=== PATIENT | female | born 1960 | race Caucasian/White ===

== ENCOUNTER 2016-08-26 17:35 | Emergency (ER) | payer OTHER ==
[2016-08-26 18:01] VITALS: TEMP 97.7; BMI 31.6
[2016-08-26 18:48] VITALS: BP 125/73; PULSE 78
[2016-08-26 19:07] LABS: BASOPHIL 1.1 % (0-2.0); EOSINOPHIL 1.5 % (0-4.5); MCH 35.6 pg (25.7-33.7); MEAN PLT VOLUME 9.2 fl (7.5-11.1); NEUTROPHILS 60.2 % (42.8-82.8); PLATELET COUNT 291 K/MM3 (134-434); RDW 14.4 % (11.6-15.6); WHITE BLOOD COUNT 3.9 K/mm3 (4.0-10.0)
[2016-08-26 19:12] LABS: URINE APPEARANCE CLEAR; URINE BILIRUBIN NEGATIVE (NEGATIVE); URINE BLOOD NEGATIVE (NEGATIVE); URINE COLOR LTYELLOW; URINE GLUCOSE (UA) NEGATIVE (NEGATIVE); URINE KETONE NEGATIVE (NEGATIVE); URINE LEUK ESTERASE NEGATIVE (NEGATIVE); URINE NITRITE NEGATIVE (NEGATIVE); URINE PROTEIN NEGATIVE (NEGATIVE); URINE UROBILINOGEN NEGATIVE E.U./dl (0.2-1.0)
[2016-08-26 19:17] LABS: INR 1.1 (0.82-1.09); PROTHROMBIN TIME (PATIENT) 12.1 SEC (9.98-11.88)
--- NOTE | 2016-08-26 19:42 | PDOC ---
History of Present Illness - General History Source: [facility] Records Exam Limitations: Clinical Condition, Dementia, Other (nonverbal) - History of Present Illness Initial Comments: 08/26/16 19:47 The patient is a 56 year old female with significant past medical history of hypertension, hypothyroidism, down's syndrome, dementia, nonverbal at baseline, sleep apnea, arthritis, and obesity who presents to the ED BIBA from [facility] for AMS and possible first time seizure. Allergies: NKDA Social History: No alcohol, tobacco, or drug use reported. Past Surgical History: None reported PCP: Dr. Altaf Loaiza <Alena Khalil - Last Filed: 08/26/16 21:27> - General History Source: [facility] Records <Daniel Damon - Last Filed: 08/26/16 21:35> - General Chief Complaint: Altered Mental Status Stated Complaint: AMS Time Seen by Provider: 08/26/16 19:42 Past History <Alena Khalil - Last Filed: 08/26/16 21:27> - Past Medical History Dementia: Yes Psychiatric Problems: Yes (DOWN SYNDROME, ANXIETY) - Psycho/Social/Smoking Cessation Hx Anxiety: No Suicidal Ideation: No Smoking History: Never smoked Have you smoked in the past 12 months: No Hx Alcohol Use: No Substance Use Type: None <Daniel Damon - Last Filed: 08/26/16 21:35> - Past Medical History Allergies/Adverse Reactions: Allergies Allergy/AdvReac Type Severity Reaction Status Date / Time No Known Allergies Allergy Verified 08/26/16 17:52 Home Medications: Ambulatory Orders Levothyroxine [Synthroid -] 25 mcg PO DAILY 11/21/13 Memantine HCl [Namenda Xr] 10 mg PO BID 11/21/13 Acetaminophen [Tylenol .Regular Strength -] 650 mg PO Q6H PRN #60 tablet Pantoprazole Sodium [Protonix -] 40 mg PO DAILY #60 tablet.ec 11/25/13 Multivitamin with Minerals [Icaps Plus] 1 each PO DAILY 08/26/16 Review of Systems - Review of Systems Able to Perform ROS?: No Comments:: 08/26/16 19:47 Unable to obtain ROS secondary to patients clinical condition <Alena Khalil - Last Filed: 08/26/16 21:27> *Physical Exam - Vital Signs Last Vital Signs Temp Pulse Resp BP Pulse Ox 97.7 F 78 16 125/73 100 08/26/16 17:53 08/26/16 18:45 08/26/16 18:45 08/26/16 18:45 08/26/16 18:45 - Physical Exam Comments: 08/26/16 19:48 GENERAL: Well developed, well nourished. Awake. No acute distress. HEENT: Normocephalic, atraumatic. PERRLA, EOMI. No conjunctival pallor. Sclera are non- icteric. Moist mucous membranes. Oropharynx is clear. NECK: Supple. Full ROM. No JVD. Carotid pulses 2+ and symmetric, without bruits. No thyromegaly. No lymphadenopathy. CARDIOVASCULAR: Regular rate and rhythm. No murmurs, rubs, or gallops. Distal pulses are 2+ and symmetric. PULMONARY: No evidence of respiratory distress. Lungs clear to auscultation bilaterally. No wheezing, rales or rhonchi. ABDOMINAL: Soft. Non-distended. No rebound or guarding. No organomegaly. Normoactive bowel sounds. MUSCULOSKELETAL Normal range of motion at all joints. No bony deformities. EXTREMITIES: No cyanosis. No clubbing. No edema. SKIN: Warm and dry. Normal capillary refill. No rashes. No jaundice. NEUROLOGICAL: Pt is nonverbal, moving all extremities equally, sensory grossly intact, no gross neurological deficits. <Alena Khalil - Last Filed: 08/26/16 21:27> - Vital Signs Last Vital Signs Temp Pulse Resp BP Pulse Ox 97.7 F 78 16 125/73 100 08/26/16 17:53 08/26/16 18:45 08/26/16 18:45 08/26/16 18:45 08/26/16 18:45 <Daniel Damon - Last Filed: 08/26/16 21:35> Heart Score/ECG Review - ECG Impressions Comment:: 08/26/16 19:48 NSR @69bpm <Alena Khalil - Last Filed: 08/26/16 21:27> ED Treatment Course - LABORATORY CBC & Chemistry Diagram: 08/26/16 18:30 08/26/16 20:05 - ADDITIONAL ORDERS Additional order review: Laboratory Results 08/26/16 08/26/16 08/26/16 18:49 18:30 18:30 INR Sodium Cancelled Potassium Cancelled Chloride Cancelled Carbon Dioxide Cancelled Anion Gap Cancelled BUN Cancelled Creatinine Cancelled Creat Clearance w eGFR Cancelled Random Glucose Cancelled Lactic Acid 0.920 Calcium Cancelled Total Bilirubin Cancelled AST Cancelled ALT Cancelled Alkaline Phosphatase Cancelled Total Protein Cancelled Albumin Cancelled Urine Color Ltyellow Urine Appearance Clear Urine pH 6.0 Urine Protein Negative Urine Glucose (UA) Negative Urine Ketones Negative Urine Blood Negative Urine Nitrite Negative Urine Bilirubin Negative Urine Urobilinogen Negative Ur Leukocyte Esterase Negative 08/26/16 18:30 INR 1.10 Sodium Potassium Chloride Carbon Dioxide Anion Gap BUN Creatinine Creat Clearance w eGFR Random Glucose Lactic Acid Calcium Total Bilirubin AST ALT Alkaline Phosphatase Total Protein Albumin Urine Color Urine Appearance Urine pH Urine Protein Urine Glucose (UA) Urine Ketones Urine Blood Urine Nitrite Urine Bilirubin Urine Urobilinogen Ur Leukocyte Esterase 08/26/16 18:30 RBC 3.57 L MCV 108.0 H MCHC 33.0 RDW 14.4 MPV 9.2 Neutrophils % 60.2 Lymphocytes % 28.2 Monocytes % 9.0 Eosinophils % 1.5 Basophils % 1.1 <Alena Khalil - Last Filed: 08/26/16 21:27> - LABORATORY CBC & Chemistry Diagram: 08/26/16 18:30 08/26/16 20:05 - ADDITIONAL ORDERS Additional order review: Laboratory Results 08/26/16 08/26/16 08/26/16 18:49 18:30 18:30 INR Sodium Cancelled Potassium Cancelled Chloride Cancelled Carbon Dioxide Cancelled Anion Gap Cancelled BUN Cancelled Creatinine Cancelled Creat Clearance w eGFR Cancelled Random Glucose Cancelled Lactic Acid 0.920 Calcium Cancelled Total Bilirubin Cancelled AST Cancelled ALT Cancelled Alkaline Phosphatase Cancelled Total Protein Cancelled Albumin Cancelled Urine Color Ltyellow Urine Appearance Clear Urine pH 6.0 Urine Protein Negative Urine Glucose (UA) Negative Urine Ketones Negative Urine Blood Negative Urine Nitrite Negative Urine Bilirubin Negative Urine Urobilinogen Negative Ur Leukocyte Esterase Negative 08/26/16 18:30 INR 1.10 Sodium Potassium Chloride Carbon Dioxide Anion Gap BUN Creatinine Creat Clearance w eGFR Random Glucose Lactic Acid Calcium Total Bilirubin AST ALT Alkaline Phosphatase Total Protein Albumin Urine Color Urine Appearance Urine pH Urine Protein Urine Glucose (UA) Urine Ketones Urine Blood Urine Nitrite Urine Bilirubin Urine Urobilinogen Ur Leukocyte Esterase 08/26/16 18:30 RBC 3.57 L MCV 108.0 H MCHC 33.0 RDW 14.4 MPV 9.2 Neutrophils % 60.2 Lymphocytes % 28.2 Monocytes % 9.0 Eosinophils % 1.5 Basophils % 1.1 <Daniel Damon - Last Filed: 08/26/16 21:35> Medical Decision Making - Medical Decision Making 08/26/16 21:[address] Anahi Fountain (via answering service) at 21:19 Awaiting call back 08/26/16 21:26 Patient's case discussed with Dr. Fountain at 21:26 <Alena Khalil - Last Filed: 08/26/16 21:27> - Medical Decision Making 08/26/16 21:32 Dr. Damon: The scribe's documentation has been prepared under my direction and personally reviewed by me in its entirery. I confirm that the note above accurately reflects all work, treatment, procedures, and medical decision making performed by me. All labs, Ct scan of brain and chest xray are negative. Pt will return to [place] as discussed with Dr. Abelardo Fountain. He suggests outpt neurology follow up <Daniel Damon - Last Filed: 08/26/16 21:35> *DC/Admit/Observation/Transfer - Attestations Scribe Attestion: 08/26/16 19:48 Documentation prepared by Alena Khalil, acting as medical laboratory technician for Daniel Damon MD/DO. <Alena Khalil - Last Filed: 08/26/16 21:27> - Discharge Dispostion Admit: No <Daniel Damon - Last Filed: 08/26/16 21:35> Diagnosis at time of Disposition: Altered awareness, transient, Hypothyroidism, Down syndrome, Hypertension - Discharge Dispostion Disposition: HOME Condition at time of disposition: Stable - Referrals Referrals: Altaf Loaiza [Primary Care Provider] - - Patient Instructions Printed Discharge Instructions: DI for Altered Mental Status Additional Instructions: Spoke to Dr. Christi Fountain. suggests outpt Neurology follow up. Continue all medications . All studies including Head ct scan, chest xray, and labs work are negative.
[2016-08-26 20:51] LABS: ANION GAP 7 (8-16); BILIRUBIN,TOTAL 0.4 mg/dL (0.2-1.0); CALCIUM 8.9 mg/dL (8.5-10.1); CO2 30 mmol/L (21-32); COCKROFT - GAULT 92.6925; CREATININE 0.9 mg/dL (0.55-1.02); GLUCOSE,RANDOM 126 mg/dL (74-106); SGOT/AST 26 U/L (15-37); SGPT/ALT 26 U/L (12-78); TOT PROT 7.3 g/dl (6.4-8.2)
[2016-08-26 20:53] LABS: ALK PHOS 68 U/L (45-117)
--- NOTE | 2016-08-27 12:21 | EKG ---
Test Reason : Blood Pressure : / mmHG Vent. Rate : 069 BPM Atrial Rate : 069 BPM P-R Int : 150 ms QRS Dur : 098 ms QT Int : 418 ms P-R-T Axes : 056 082 036 degrees QTc Int : 447 ms NORMAL SINUS RHYTHM NORMAL ECG WHEN COMPARED WITH ECG OF 21-NOV-2013 19:52, ST NOW DEPRESSED IN ANTERIOR LEADS Confirmed by VAISHNAVI SHEPHERD MD ([id number]) on 08/27/2016 12:21:17 PM Referred By: Confirmed By:VAISHNAVI SHEPHERD MD
== END 2016-08-26 23:45 | disposition home or self-care (01) ==
LOC: JER 17:35
DX: R40.4 Transient alteration of awareness (principal); Q90.9 Down syndrome, unspecified; I10 Essential (primary) hypertension; E03.9 Hypothyroidism, unspecified; F03.90 Unspecified dementia, unspecified severity, without behavioral disturbance, psychotic disturbance, mood disturbance, and anxiety; E66.9 Obesity, unspecified; Z68.31 Body mass index [BMI] 31.0-31.9, adult; F41.9 Anxiety disorder, unspecified
CPT/HCPCS: 36415; 70450-TC; 71010-TC; 80053; 81003; 83605; 85025; 85610; 87040; 87086; 93005; 93010; 99285-25

== ENCOUNTER 2021-02-07 07:52 | Inpatient (IN) | payer OTHER ==
[2021-02-07] MEDS ORDERED: ALBUTEROL SO4 2.5/IPRATROPIUM 0.5 INH SOL 3 ML VIAL.NEB. NEB SCH (08:30)
[2021-02-07 09:15] LABS: BASO % 0.9 % (0-2.0); EOS % 0.9 % (0-4.5); HEMATOCRIT 36.9 % (32.4-45.2); HEMOGLOBIN 12.7 GM/dL (10.7-15.3); LYMPH % 10.8 % (8-40); MCH 37.9 pg (25.7-33.7); MCHC 34.5 g/dl (32.0-36.0); MEAN CELL VOLUME 109.9 fl (80-96); MEAN PLT VOLUME 7.5 fl (7.5-11.1); MONO % 5.2 % (3.8-10.2); NEUT % 82.2 % (42.8-82.8); PLATELET COUNT 215 10^3/uL (134-434); RBC 3.35 M/mm3 (3.60-5.2); RDW 13.5 % (11.6-15.6); WHITE BLOOD COUNT 9.4 K/mm3 (4.0-10.0)
[2021-02-07 09:42] LABS: CHLORIDE 106 mmol/L (98-107); SODIUM 142 mmol/L (136-145)
[2021-02-07 09:44] LABS: CALCIUM 9.5 mg/dL (8.5-10.1)
[2021-02-07 09:45] LABS: ALBUMIN 2.9 g/dl (3.4-5.0); ANION GAP 4 MMOL/L (8-16); BLOOD UREA NITROGEN 24.4 mg/dL (7-18); CO2 32 mmol/L (21-32); GLUCOSE,RANDOM 105 mg/dL (74-106)
[2021-02-07 09:48] LABS: CREATININE 1.1 mg/dL (0.55-1.3); SGOT/AST 16 U/L (15-37); SGPT/ALT 15 U/L (13-61)
[2021-02-07] MEDS ORDERED: SODIUM CHLORIDE 0.9% 500 ML INFUS.BAG IV ONE (09:48)
[2021-02-07 09:49] LABS: BILIRUBIN,TOTAL 0.4 mg/dL (0.2-1)
[2021-02-07 09:50] LABS: ALK PHOS 55 U/L (45-117); TOT PROT 6.9 g/dl (6.4-8.2)
[2021-02-07 10:22] LABS: VENOUS BASE EXCESS 3.6 mmol/L (-2-2); VENOUS O2 SATURATION 34.7 % (70-80); VENOUS PCO2 55.9 mmHg (38-52); VENOUS PH 7.355 (7.310-7.410)
[2021-02-07 10:48] LABS: ANISOCYTOSIS 0; MACROCYTOSIS 1+; PLATELET ESTIMATE NORMAL
[2021-02-07] MEDS ORDERED: ENOXAPARIN NA (PORCINE) 80 MG/0.8 ML DISP.SYRIN SQ ONE (13:10)
[2021-02-07] MEDS ORDERED: ACETAMINOPHEN 325 MG TABLET (FP) PO PRN (14:00)
[2021-02-07 14:21] LABS: N-TERMINAL BNP 88.7 pg/ml (5-125)
[2021-02-07] MEDS: ENOXAPARIN NA (PORCINE) 80 MG/0.8 ML DISP.SYRIN SQ SCH (19:34)
[2021-02-08] MEDS: MEMANTINE HCL 10 MG TABLET (FP) PO SCH ×3 (00:04→21:02)
[2021-02-08] MEDS: ENOXAPARIN NA (PORCINE) 80 MG/0.8 ML DISP.SYRIN SQ SCH ×2 (02:36→14:37)
[2021-02-08] MEDS: LEVOTHYROXINE NA 25 MCG TABLET (FP) PO SCH (07:13)
[2021-02-08] MEDS ORDERED: PT OWN MED DRAWER 7, Y5N ONE (09:51)
[2021-02-08] MEDS: MULTIVITAMINS THER W-MINERALS COMBO TABLET (FP) PO SCH (10:04)
[2021-02-08] MEDS: PANTOPRAZOLE 40 MG TABLET PO SCH (10:04)
[2021-02-09] MEDS: ENOXAPARIN NA (PORCINE) 80 MG/0.8 ML DISP.SYRIN SQ SCH ×2 (02:21→13:40)
[2021-02-09] MEDS: LEVOTHYROXINE NA 25 MCG TABLET (FP) PO SCH (06:10)
[2021-02-09] MEDS: MEMANTINE HCL 10 MG TABLET (FP) PO SCH ×2 (09:21→21:52)
[2021-02-09] MEDS: PANTOPRAZOLE 40 MG TABLET PO SCH (09:21)
[2021-02-09] MEDS: MULTIVITAMINS THER W-MINERALS COMBO TABLET (FP) PO SCH (09:21)
[2021-02-09 12:20] VITALS: BMI 34.2
[2021-02-10] MEDS: ENOXAPARIN NA (PORCINE) 80 MG/0.8 ML DISP.SYRIN SQ SCH ×2 (03:32→14:48)
[2021-02-10] MEDS: LEVOTHYROXINE NA 25 MCG TABLET (FP) PO SCH (06:48)
[2021-02-10] MEDS ORDERED: PT OWN MED DRAWER 7, Y5N ONE ×2 (07:29→16:20)
[2021-02-10] MEDS: AMINO ACIDS/PROTEIN HYDROLYS 30 ML LIQUID.PKT PO SCH (09:30)
[2021-02-10] MEDS: PANTOPRAZOLE 40 MG TABLET PO SCH (09:30)
[2021-02-10] MEDS: MULTIVITAMINS THER W-MINERALS COMBO TABLET (FP) PO SCH (09:30)
[2021-02-10] MEDS: MEMANTINE HCL 10 MG TABLET (FP) PO SCH ×2 (09:30→21:56)
[2021-02-10] MEDS: ASCORBIC ACID 250 MG TABLET (FP) PO SCH (09:34)
[2021-02-10] MEDS: ZINC SULFATE 220 MG CAPSULE (FP) PO SCH (09:34)
[2021-02-10] MEDS: CHOLECALCIFEROL (VIT D3) 1,000 UNIT (25 MCG) TABLET PO SCH ×2 (11:48→21:56)
[2021-02-10 13:56] LABS: BASO % 1.1 % (0-2.0); EOS % 3.6 % (0-4.5); HEMATOCRIT 35.6 % (32.4-45.2); LYMPH % 22.5 % (8-40); MCH 37.1 pg (25.7-33.7); MCHC 33.8 g/dl (32.0-36.0); MEAN CELL VOLUME 109.9 fl (80-96); MEAN PLT VOLUME 8.3 fl (7.5-11.1); MONO % 5.7 % (3.8-10.2); NEUT % 67.1 % (42.8-82.8); PLATELET COUNT 221 10^3/uL (134-434); RBC 3.24 M/mm3 (3.60-5.2); RDW 13.3 % (11.6-15.6); WHITE BLOOD COUNT 5.2 K/mm3 (4.0-10.0)
[2021-02-10 14:16] LABS: BLOOD UREA NITROGEN 14.3 mg/dL (7-18)
[2021-02-10 14:19] LABS: CREATININE 0.8 mg/dL (0.55-1.3)
[2021-02-10 14:20] LABS: BILIRUBIN,TOTAL 0.5 mg/dL (0.2-1); TOT PROT 6.4 g/dl (6.4-8.2)
[2021-02-10 14:28] LABS: ALBUMIN 2.5 g/dl (3.4-5.0)
[2021-02-10 14:43] LABS: ANISOCYTOSIS 2+; MACROCYTOSIS 0; PLATELET ESTIMATE NORMAL
[2021-02-11] MEDS: ENOXAPARIN NA (PORCINE) 80 MG/0.8 ML DISP.SYRIN SQ SCH ×2 (02:59→13:59)
[2021-02-11] MEDS: LEVOTHYROXINE NA 25 MCG TABLET (FP) PO SCH (06:47)
[2021-02-11] MEDS: CHOLECALCIFEROL (VIT D3) 1,000 UNIT (25 MCG) TABLET PO SCH ×2 (10:25→21:13)
[2021-02-11] MEDS: ASCORBIC ACID 250 MG TABLET (FP) PO SCH (10:25)
[2021-02-11] MEDS: ZINC SULFATE 220 MG CAPSULE (FP) PO SCH (10:25)
[2021-02-11] MEDS: MULTIVITAMINS THER W-MINERALS COMBO TABLET (FP) PO SCH (10:25)
[2021-02-11] MEDS: PANTOPRAZOLE 40 MG TABLET PO SCH (10:25)
[2021-02-11] MEDS: MEMANTINE HCL 10 MG TABLET (FP) PO SCH ×2 (10:25→21:13)
[2021-02-11] MEDS: AMINO ACIDS/PROTEIN HYDROLYS 30 ML LIQUID.PKT PO SCH (10:25)
[2021-02-12] MEDS: ENOXAPARIN NA (PORCINE) 80 MG/0.8 ML DISP.SYRIN SQ SCH (02:17)
[2021-02-12] MEDS: LEVOTHYROXINE NA 25 MCG TABLET (FP) PO SCH (06:03)
[2021-02-12] MEDS: PANTOPRAZOLE 40 MG TABLET PO SCH (09:51)
[2021-02-12] MEDS: CHOLECALCIFEROL (VIT D3) 1,000 UNIT (25 MCG) TABLET PO SCH (09:51)
[2021-02-12] MEDS: MEMANTINE HCL 10 MG TABLET (FP) PO SCH (09:51)
[2021-02-12] MEDS: AMINO ACIDS/PROTEIN HYDROLYS 30 ML LIQUID.PKT PO SCH (09:52)
[2021-02-12] MEDS: MULTIVITAMINS THER W-MINERALS COMBO TABLET (FP) PO SCH (09:52)
[2021-02-12] MEDS: ZINC SULFATE 220 MG CAPSULE (FP) PO SCH (09:52)
[2021-02-12] MEDS: ASCORBIC ACID 250 MG TABLET (FP) PO SCH (09:52)
[2021-02-12] MEDS ORDERED: DEXTROSE 5%-WATER - 50 ML IVPB ONE ×2 (11:42→17:10)
[2021-02-12] MEDS ORDERED: PIPERACILLIN/TAZOBACTAM 3.375 GM VIAL IVPB ONE ×2 (11:42→17:10)
[2021-02-12] MEDS: PIPERACILLIN/TAZOB 3.375 GM 3.375 GM in DEXTROSE 5%-WATER - 50 ML IVPB SCH ×2 (11:44→19:15)
[2021-02-12] MEDS: APIXABAN 5 MG TABLET PO SCH ×2 (11:49→21:18)
[2021-02-12 11:52] LABS: BASO % 0.4 % (0-2.0); EOS % 0.7 % (0-4.5); HEMATOCRIT 36.9 % (32.4-45.2); HEMOGLOBIN 12.4 GM/dL (10.7-15.3); LYMPH % 14.6 % (8-40); MCHC 33.5 g/dl (32.0-36.0); MEAN CELL VOLUME 110.3 fl (80-96); MONO % 6.1 % (3.8-10.2); NEUT % 78.2 % (42.8-82.8); PLATELET COUNT 228 10^3/uL (134-434); RBC 3.35 M/mm3 (3.60-5.2); WHITE BLOOD COUNT 8.3 K/mm3 (4.0-10.0)
[2021-02-12 12:07] LABS: ALBUMIN 2.8 g/dl (3.4-5.0); BLOOD UREA NITROGEN 20.8 mg/dL (7-18); CALCIUM 8.7 mg/dL (8.5-10.1)
[2021-02-12 12:11] LABS: CREATININE 0.8 mg/dL (0.55-1.3)
[2021-02-12 12:12] LABS: BILIRUBIN,TOTAL 0.8 mg/dL (0.2-1); TOT PROT 6.8 g/dl (6.4-8.2)
[2021-02-12] MEDS ORDERED: PT OWN MED DRAWER 7, Y5N ONE (12:51)
[2021-02-13] MEDS ORDERED: PIPERACILLIN/TAZOBACTAM 3.375 GM VIAL IVPB ONE ×3 (01:17→17:14)
[2021-02-13] MEDS ORDERED: DEXTROSE 5%-WATER - 50 ML IVPB ONE ×3 (01:18→17:15)
[2021-02-13] MEDS: PIPERACILLIN/TAZOB 3.375 GM 3.375 GM in DEXTROSE 5%-WATER - 50 ML IVPB SCH ×3 (01:26→17:32)
[2021-02-13 02:59] LABS: EPI CELLS 24 /uL (0-25.1); HYALINE CASTS 0 /uL (0-3.1); PH,URINE 5.5 (5.0-8.0); URINE APPEARANCE TURBID; URINE BACTERIA 24 /uL (0-1359); URINE BILIRUBIN NEGATIVE (NEGATIVE); URINE COLOR DK YELLOW; URINE GLUCOSE (UA) NEGATIVE (NEGATIVE); URINE KETONE 1+ (NEGATIVE); URINE LEUK ESTERASE NEGATIVE (NEGATIVE); URINE NITRITE NEGATIVE (NEGATIVE); URINE PROTEIN 1+ (NEGATIVE); URINE RBC 23 /uL (0-23.9); URINE UROBILINOGEN 0.2 mg/dL (0.2-1.0); URINE WBC 15 /uL (0-25.8)
[2021-02-13] MEDS: PANTOPRAZOLE SODIUM 40 MG VIAL IVPUSH SCH (09:51)
[2021-02-13] MEDS: APIXABAN 5 MG TABLET PO SCH ×2 (11:06→21:08)
[2021-02-13 12:38] LABS: ARTERIAL BLD GAS O2 SATURATION 98.5 % (95-98); ARTERIAL BLOOD GAS BASE EXCESS 6.7 mmol/L (-2-2); ARTERIAL BLOOD GAS PO2 136.7 mmHg (80-100); ARTERIAL BLOOD GAS pH 7.354 (7.350-7.450)
[2021-02-13 12:39] LABS: ALLENS TEST POSITIVE
[2021-02-13] MEDS: ENOXAPARIN NA (PORCINE) 80 MG/0.8 ML DISP.SYRIN SQ SCH (17:33)
[2021-02-13] MEDS: AMINO ACIDS 4.25%/D5W 1,000 ML IV SCH (18:05)
[2021-02-13] MEDS: MEMANTINE HCL 10 MG TABLET (FP) PO SCH (21:08)
[2021-02-14] MEDS ORDERED: PIPERACILLIN/TAZOBACTAM 3.375 GM VIAL IVPB ONE ×3 (01:44→17:41)
[2021-02-14] MEDS ORDERED: DEXTROSE 5%-WATER - 50 ML IVPB ONE ×3 (01:44→17:41)
[2021-02-14] MEDS: PIPERACILLIN/TAZOB 3.375 GM 3.375 GM in DEXTROSE 5%-WATER - 50 ML IVPB SCH ×3 (02:36→17:59)
[2021-02-14] MEDS: AMINO ACIDS 4.25%/D5W 1,000 ML IV SCH ×2 (03:25→15:01)
[2021-02-14] MEDS: ENOXAPARIN NA (PORCINE) 80 MG/0.8 ML DISP.SYRIN SQ SCH ×2 (03:25→15:46)
[2021-02-14] MEDS: LEVOTHYROXINE SODIUM 100 MCG VIAL IVPUSH SCH (09:40)
[2021-02-14] MEDS: PANTOPRAZOLE SODIUM 40 MG VIAL IVPUSH SCH (09:41)
[2021-02-14] MEDS: MEMANTINE HCL 10 MG TABLET (FP) PO SCH (09:42)
[2021-02-14] MEDS: APIXABAN 5 MG TABLET PO SCH (09:42)
[2021-02-14] MEDS ORDERED: ALBUTEROL SO4 2.5/IPRATROPIUM 0.5 INH SOL 3 ML VIAL.NEB. NEB PRN (15:04)
[2021-02-14] MEDS ORDERED: ACETAMINOPHEN 1000 MG/100 ML VIAL IVPB PRN (15:05)
[2021-02-15] MEDS ORDERED: PIPERACILLIN/TAZOBACTAM 3.375 GM VIAL IVPB ONE ×3 (01:59→17:20)
[2021-02-15] MEDS ORDERED: DEXTROSE 5%-WATER - 50 ML IVPB ONE ×3 (01:59→17:20)
[2021-02-15] MEDS: ENOXAPARIN NA (PORCINE) 80 MG/0.8 ML DISP.SYRIN SQ SCH ×2 (03:02→16:22)
[2021-02-15] MEDS: PIPERACILLIN/TAZOB 3.375 GM 3.375 GM in DEXTROSE 5%-WATER - 50 ML IVPB SCH ×3 (03:02→17:26)
[2021-02-15] MEDS: AMINO ACIDS 4.25%/D5W 2,000 ML IV SCH ×2 (03:03→21:53)
[2021-02-15 07:25] LABS: BASO % 0.8 % (0-2.0); EOS % 4.3 % (0-4.5); HEMATOCRIT 32.8 % (32.4-45.2); HEMOGLOBIN 11.4 GM/dL (10.7-15.3); LYMPH % 18.7 % (8-40); MCH 37.6 pg (25.7-33.7); MCHC 34.8 g/dl (32.0-36.0); MEAN CELL VOLUME 107.9 fl (80-96); MEAN PLT VOLUME 7.9 fl (7.5-11.1); NEUT % 69.2 % (42.8-82.8); PLATELET COUNT 182 10^3/uL (134-434); RBC 3.04 M/mm3 (3.60-5.2); RDW 12.9 % (11.6-15.6); WHITE BLOOD COUNT 5.5 K/mm3 (4.0-10.0)
[2021-02-15] MEDS ORDERED: PT OWN MED DRAWER 7, Y5N ONE (08:16)
[2021-02-15 08:31] LABS: CALCIUM 7.8 mg/dL (8.5-10.1)
[2021-02-15 08:33] LABS: ALBUMIN 2.2 g/dl (3.4-5.0)
[2021-02-15 08:35] LABS: CREATININE 0.6 mg/dL (0.55-1.3)
[2021-02-15 08:36] LABS: BILIRUBIN,TOTAL 0.4 mg/dL (0.2-1)
[2021-02-15 08:38] LABS: TOT PROT 5.7 g/dl (6.4-8.2)
[2021-02-15 08:51] LABS: ANISOCYTOSIS 1+; MACROCYTOSIS 1+; PLATELET ESTIMATE NORMAL
[2021-02-15] MEDS: LEVOTHYROXINE SODIUM 100 MCG VIAL IVPUSH SCH (09:18)
[2021-02-15] MEDS: PANTOPRAZOLE SODIUM 40 MG VIAL IVPUSH SCH (09:19)
[2021-02-15] MEDS: MULTIVIT INJ. ADULT COMBO WITH VIT K 1 COMBO 10 ML VIAL IV SCH (12:15)
[2021-02-16] MEDS ORDERED: PIPERACILLIN/TAZOBACTAM 3.375 GM VIAL IVPB ONE ×3 (00:48→16:32)
[2021-02-16] MEDS ORDERED: DEXTROSE 5%-WATER - 50 ML IVPB ONE ×3 (00:48→16:32)
[2021-02-16] MEDS: PIPERACILLIN/TAZOB 3.375 GM 3.375 GM in DEXTROSE 5%-WATER - 50 ML IVPB SCH ×3 (01:25→17:12)
[2021-02-16] MEDS: ENOXAPARIN NA (PORCINE) 80 MG/0.8 ML DISP.SYRIN SQ SCH ×2 (03:24→16:35)
[2021-02-16] MEDS: AMINO ACIDS 4.25%/D5W 2,000 ML IV SCH ×2 (06:28→16:37)
[2021-02-16] MEDS: LEVOTHYROXINE SODIUM 100 MCG VIAL IVPUSH SCH (10:16)
[2021-02-16] MEDS: PANTOPRAZOLE SODIUM 40 MG VIAL IVPUSH SCH (10:17)
[2021-02-16] MEDS: MULTIVIT INJ. ADULT COMBO WITH VIT K 1 COMBO 10 ML VIAL IV SCH (13:02)
[2021-02-16] MEDS ORDERED: AMINO ACIDS 4.25%/D5W 1,000 ML IV SCH (16:15)
[2021-02-16] MEDS ORDERED: FAT EMULSION/OLIVE/SOY (CLINOLIPID) 500 ML EMULSION IV SCH (22:00)
[2021-02-17] MEDS: PIPERACILLIN/TAZOB 3.375 GM 3.375 GM in DEXTROSE 5%-WATER - 50 ML IVPB SCH ×3 (01:05→18:30)
[2021-02-17] MEDS ORDERED: PIPERACILLIN/TAZOBACTAM 3.375 GM VIAL IVPB ONE ×3 (01:08→18:21)
[2021-02-17] MEDS ORDERED: DEXTROSE 5%-WATER - 50 ML IVPB ONE ×3 (01:09→18:21)
[2021-02-17] MEDS: ENOXAPARIN NA (PORCINE) 80 MG/0.8 ML DISP.SYRIN SQ SCH ×2 (04:08→14:47)
[2021-02-17] MEDS: PANTOPRAZOLE SODIUM 40 MG VIAL IVPUSH SCH (10:23)
[2021-02-17] MEDS: LEVOTHYROXINE SODIUM 100 MCG VIAL IVPUSH SCH (10:23)
[2021-02-17] MEDS: MULTIVIT INJ. ADULT COMBO WITH VIT K 1 COMBO 10 ML VIAL IV SCH (10:42)
[2021-02-17] MEDS ORDERED: MULTIVIT INJ. ADULT COMBO WITH VIT K 1 COMBO 10 ML VIAL IV SCH (16:15)
[2021-02-18] MEDS ORDERED: DEXTROSE 5%-WATER - 50 ML IVPB ONE ×2 (01:03→10:30)
[2021-02-18] MEDS ORDERED: PIPERACILLIN/TAZOBACTAM 3.375 GM VIAL IVPB ONE ×2 (01:03→10:30)
[2021-02-18] MEDS: PIPERACILLIN/TAZOB 3.375 GM 3.375 GM in DEXTROSE 5%-WATER - 50 ML IVPB SCH ×2 (01:08→11:03)
[2021-02-18] MEDS: ENOXAPARIN NA (PORCINE) 80 MG/0.8 ML DISP.SYRIN SQ SCH ×2 (02:31→15:43)
[2021-02-18] MEDS: PANTOPRAZOLE SODIUM 40 MG VIAL IVPUSH SCH (11:04)
[2021-02-18] MEDS: LEVOTHYROXINE SODIUM 100 MCG VIAL IVPUSH SCH (11:04)
[2021-02-18 12:04] LABS: BASO % 1.2 % (0-2.0); HEMATOCRIT 39.8 % (32.4-45.2); HEMOGLOBIN 13.6 GM/dL (10.7-15.3); LYMPH % 28.2 % (8-40); MCH 37.4 pg (25.7-33.7); MCHC 34.1 g/dl (32.0-36.0); MEAN CELL VOLUME 109.7 fl (80-96); MEAN PLT VOLUME 8.3 fl (7.5-11.1); NEUT % 54.6 % (42.8-82.8); PLATELET COUNT 173 10^3/uL (134-434); RBC 3.63 M/mm3 (3.60-5.2); WHITE BLOOD COUNT 2.7 K/mm3 (4.0-10.0)
[2021-02-18 12:59] LABS: ALBUMIN 2.3 g/dl (3.4-5.0); BILIRUBIN,TOTAL 0.5 mg/dL (0.2-1); BLOOD UREA NITROGEN 13.4 mg/dL (7-18); CALCIUM 8.6 mg/dL (8.5-10.1); CREATININE 0.8 mg/dL (0.55-1.3); TOT PROT 5.9 g/dl (6.4-8.2)
[2021-02-19] MEDS: ENOXAPARIN NA (PORCINE) 80 MG/0.8 ML DISP.SYRIN SQ SCH ×2 (03:15→16:07)
[2021-02-19] MEDS: PANTOPRAZOLE SODIUM 40 MG VIAL IVPUSH SCH (09:33)
[2021-02-19] MEDS: LEVOTHYROXINE SODIUM 100 MCG VIAL IVPUSH SCH (09:35)
[2021-02-20] MEDS: ENOXAPARIN NA (PORCINE) 80 MG/0.8 ML DISP.SYRIN SQ SCH (05:38)
[2021-02-20] MEDS ORDERED: LEVOTHYROXINE NA 50 MCG TABLET (FP) PO ONE (09:33)
[2021-02-20] MEDS ORDERED: PANTOPRAZOLE 40 MG TABLET PO SCH (10:00)
[2021-02-20 14:53] VITALS: BP 122/66; PULSE 51; TEMP 98.2
[2021-02-20] MEDS ORDERED: APIXABAN 5 MG TABLET PO SCH (22:00)
== END 2021-02-20 15:15 | DRG 175 ==
LOC: JER 07:52 → JERBED 13:15 → J4W 22:03 → J6S 02-16 18:07
PROVIDERS: ADMIT Internal Medicine; ATTEND Internal Medicine
DX: I26.99 Other pulmonary embolism without acute cor pulmonale (principal); R53.2 Functional quadriplegia; J69.0 Pneumonitis due to inhalation of food and vomit; G92.8 Other toxic encephalopathy; M48.54XA Collapsed vertebra, not elsewhere classified, thoracic region, initial encounter for fracture; M48.56XA Collapsed vertebra, not elsewhere classified, lumbar region, initial encounter for fracture; G91.9 Hydrocephalus, unspecified; Q90.9 Down syndrome, unspecified; I10 Essential (primary) hypertension; E03.9 Hypothyroidism, unspecified; R09.02 Hypoxemia; E66.9 Obesity, unspecified; Z68.34 Body mass index [BMI] 34.0-34.9, adult; G30.9 Alzheimer's disease, unspecified; F02.80 Dementia in other diseases classified elsewhere, unspecified severity, without behavioral disturbance, psychotic disturbance, mood disturbance, and anxiety
CPT/HCPCS: 36415; 36600; 70450-TC; 71045-TC-FY; 71275-TC; 74230-TC-FY; 80053; 81003; 82140; 82607; 82803; 82962; 83880; 84439; 84443; 84484; 85025; 87040; 87086; 92611-GN; 93005; 93010; 93306-TC; 93970-TC; 97162-GP; 99285-25; C9803; Q9967; U0003; U0005